=== PATIENT | female | born 1985 | race Caucasian/White ===

== ENCOUNTER → 2018-11-20 13:35 | Outpatient (CLI) | payer OTHER, SELFPAY ==
[2018-11-20 15:39] LABS: Urine N gonorrhoeae NOT DETECTED
[2018-11-20 16:41] LABS: Urine Chlamydia NOT DETECTED
== END ==
PROVIDERS: Visit Provider Physician Assistant
DX: R30.0 Dysuria (principal)
CPT/HCPCS: 87077; 87086; 87186; 87210; 87491; 87591